=== PATIENT | female | born 1990 | race Caucasian/White ===

== ENCOUNTER 2016-12-27 07:11 | Inpatient (IN) | payer OTHER ==
[~2016-12-27] VITALS: Ht 154.9 cm; Wt 72.6 kg
[2016-12-27] VITALS (19 sets, daily range): BP systolic 104–143; BP diastolic 56–85
[~2016-12-27 07:11] MED LIST: PRENATAL TABLE1 EAC3 PO; ZYRTEC10 M2 PO
[2016-12-27 09:41] LABS: EOSINOPHIL (%) 0.3 % (0-5); IMMATURE GRANULOCYTE (%) 0.4 % (0.0-0.7); IMMATURE GRANULOCYTE COUNT 0.1 K/uL; INSTRUMENT ABS NEUTROPHIL CT 11.1 K/uL; LYMPHOCYTE COUNT 1.8 K/uL (1.0-2.8); MCH 30.7 PG (29.0-34.0); MCHC 33.5 G/DL (30.0-36.0); MCV 91.5 FL (83-99); MEAN PLAT.VOLUME 11.5 uM^3 (9.5-12.4); MONOCYTE (%) 7.1 % (3-12); NEUTROPHIL (%) 79.3 % (45-76); NEUTROPHIL COUNT 11.1 K/uL (1.8-6.4); PLATELET COUNT 183 K/uL (156-360); RBC DIS.WIDTH-CV 13.3 % (11.8-14.6); RBC DIS.WIDTH-SD 44.8 % (39-53); RED BLOOD COUNT 4.37 M/uL (3.80-5.20)
[2016-12-28] VITALS (7 sets, daily range): BP systolic 106–126; BP diastolic 61–71
[2016-12-28 07:40] LABS: EOSINOPHIL (%) 1.1 % (0-5); EOSINOPHIL COUNT 0.1 K/uL (0-0.3); HEMATOCRIT 32.2 % (36.0-46.0); IMMATURE GRANULOCYTE (%) 0.5 % (0.0-0.7); IMMATURE GRANULOCYTE COUNT 0.1 K/uL; INSTRUMENT ABS NEUTROPHIL CT 8.3 K/uL; LYMPHOCYTE COUNT 1.7 K/uL (1.0-2.8); MCHC 34.5 G/DL (30.0-36.0); MCV 92.8 FL (83-99); MEAN PLAT.VOLUME 10.7 uM^3 (9.5-12.4); MONOCYTE (%) 7.4 % (3-12); MONOCYTE COUNT 0.8 K/uL (0-0.8); NEUTROPHIL (%) 75.1 % (45-76); NEUTROPHIL COUNT 8.3 K/uL (1.8-6.4); PLATELET COUNT 140 K/uL (156-360); RBC DIS.WIDTH-CV 13.6 % (11.8-14.6); RBC DIS.WIDTH-SD 45.9 % (39-53); WHITE BLOOD COUNT 11.1 K/uL (4.1-10.2)
[2016-12-28 07:44] LABS: RED BLOOD COUNT 3.47 M/uL (3.80-5.20)
[2016-12-29 03:45] VITALS: BP 130/77
[2016-12-29 07:25] VITALS: BP 113/71
[2016-12-29 14:50] VITALS: BP 109/69
[2016-12-30 08:16] VITALS: BP 123/76
[2016-12-30] MEDS ORDERED: Tylenol Extra Streng PO (09:49)
[2016-12-30] MEDS ORDERED: IBUPROFEN800 MG PO (09:50)
[2016-12-30 15:04] VITALS: BP 125/69
== END 2016-12-30 16:10 | disposition home or self-care (01) | DRG 766 ==
LOC: LDRP-OP 07:11 → 2WEST 07:12 → LDRP-OP 14:57 → 2WEST 15:50 → LDRP-OP 01-30 14:50
PROVIDERS: Advanced Practice Midwife; Obstetrics & Gynecology Obstetrics
PROC: 0U7C7ZZ Dilation of Cervix, Via Natural or Artificial Opening (ICD-10-PCS; principal; 2016-12-27)
PROC: 3E0R3BZ Introduction of Anesthetic Agent into Spinal Canal, Percutaneous Approach (ICD-10-PCS; principal; 2016-12-27)
PROC: 3E033VJ Introduction of Other Hormone into Peripheral Vein, Percutaneous Approach (ICD-10-PCS; principal; 2016-12-27)
PROC: 10D00Z1 Extraction of Products of Conception, Low, Open Approach (ICD-10-PCS; principal; 2016-12-27)
PROC: 00HU33Z Insertion of Infusion Device into Spinal Canal, Percutaneous Approach (ICD-10-PCS; principal; 2016-12-27)
DX: O76 Abnormality in fetal heart rate and rhythm complicating labor and delivery (principal); O69.1XX0 Labor and delivery complicated by cord around neck, with compression, not applicable or unspecified; Z3A.39 39 weeks gestation of pregnancy; Z37.0 Single live birth
CPT/HCPCS: 59025; 80053; 82570; 83615; 84156; 84550; 85025; 86850; 86900; 86901; C1755; G0378; J0595; J0690; J1885; J2175; J2274; J2405; J2590; J3010; J7050; J7120; Q0169